=== PATIENT | female | born 1975 | race Caucasian/White ===

== ENCOUNTER 2019-11-23 20:23 | Emergency (ER) | payer OTHER, MEDICAID, SELFPAY ==
[2019-11-23] VITALS (10 sets, daily range): BP systolic 118–145; BP diastolic 74–89; PULSE 75–114; RESP 20–22; TEMP 36.5; O2SAT 94–99
--- NOTE | 2019-11-23 20:32 | DI.RAD.S_ITS ---
PROCEDURE: XR ACUTE ABDOMEN SERIES INDICATIONS: SOB, fatigue, orthopnea TECHNIQUE: One view chest and two views of the abdomen were acquired. COMPARISON: None. FINDINGS: Surgical changes and devices: Bilateral hip arthroplasties. Chest: Lungs are clear. Heart size is normal. No pleural effusions. No pneumoperitoneum. Abdomen: Bowel gas pattern is normal. No suspicious calcifications. Visualized solid organ contours appear normal. Bones: No suspicious bony lesions. IMPRESSION: Bilateral hip arthroplasties, no sign of active inflammation within the chest abdomen or pelvis. Source of current symptoms is not seen. Dictated by: Avelino Browning M.D. on 11/23/2019 at 21:10 Approved by: Avelino Browning M.D. on 11/23/2019 at 21:11
--- NOTE | 2019-11-23 20:32 | DI.CT.S_ITS ---
PROCEDURE: CT HEAD/BRAIN WO CON INDICATIONS: confused, facial swelling, hearing loss TECHNIQUE: Noncontrast 4.5 mm thick angled axial sections acquired from the foramen magnum to the vertex, with coronal and sagittal reformats. For radiation dose reduction, the following was used: automated exposure control, adjustment of mA and/or kV according to patient size. COMPARISON: None. FINDINGS: Image quality: Excellent. CSF spaces: Basal cisterns are patent. No extra-axial fluid collections. Ventricles are normal in size and shape. Brain: No midline shift. No intracranial masses or hemorrhage. Thomason-white matter interface is normal. Skull and face: Calvarium and visualized facial bones are intact, without suspicious lesions. Sinuses: Visualized sinuses and mastoids are clear. IMPRESSION: Normal for age, source of current altered mental status symptoms is not seen. Dictated by: Avelino Browning M.D. on 11/23/2019 at 21:11 Approved by: Avelino Browning M.D. on 11/23/2019 at 21:11
[2019-11-23] MEDS: SODIUM CHLORIDE 0.9% 1,000 ML 125 ML IV (20:58)
[2019-11-23 21:00] LABS: Add Manual Diff / Slide Review NO; Basophils Absolute Auto 100 /uL (0-100); Basophils Percent Auto 2.6 % (0-2); Eosinophils Absolute Auto 100 /uL (0-450); Eosinophils Percent Auto 3.9 % (2-4); Hematocrit 31.9 % (36-46); Hemoglobin 10.6 g/dL (12.0-16.0); Lymphocytes Absolute Auto 1300 /uL (1100-4500); Lymphocytes Percent Auto 42.6 % (25-40); Mean Corpuscular HGB Conc 33.1 % (30-36); Mean Corpuscular Hemoglobin 29.3 PG (26-34); Mean Corpuscular Volume 88.4 fL (80-100); Monocytes Absolute Auto 300 /uL (0-900); Monocytes Percent Auto 9.8 % (3-14); Neutrophils Absolute Auto 1200 /uL (1500-7000); Neutrophils Percent Auto 41.1 % (50-75); Platelet Count 78 X10^3/uL (150-400); Red Blood Cell Count 3.61 X10^6/uL (4.0-5.2); Red Cell Distribution Width 17.4 % (11.6-14.8)
--- NOTE | 2019-11-23 21:07 | ED.AMS ---
HPI - Altered Mental Status General Chief Complaint: Upper Respiratory Symptoms Stated Complaint: sinus infection going into eye and ear Time Seen by Provider: 11/23/19 20:25 Source: patient Mode of arrival: Ambulatory Limitations: no limitations History of Present Illness HPI narrative: 44F nonsmoker with history of extensive alcohol abuse along with liver disease and GI bleeds presents with her significant other and a chief complaint left-sided sinus pressure for the past few days. She denies any nasal drainage. The further we discuss her symptoms she also has bruising on the left side of her face despite any falls or salts. She has been confused and forgetful. She has lost hearing from her left ear. Furthermore she feels quite fatigued and short of breath with any exertion or lying flat and she has the development notable swelling in both of her lower extremities. It is very unclear how long the symptoms have been going. She has had no vomiting, diarrhea or change in urinary habits such as dysuria, frequency or urgency. She denies any runny nose, sore throat or cough. She denies any fever or chills nor exposure to persons known to have COVID-19. MD complaint: altered mental status and confusion Onset (ago): unknown Severity: moderate Consistency of symptoms: constant Context: alcohol abuse Related Data Previous Rx's Medication Instructions Recorded estradiol 10 mcg vaginal tablet 10 mcg VAG .COMPLEX #18 tab 10/04/17 magnesium 200 mg PO DAILY #10 tab 11/23/19 potassium chloride 20 meq PO DAILY #10 tab 11/23/19 sulfamethoxazole-trimethoprim 1 tab PO BID 10 Days #20 tab 11/23/19 [Bactrim DS] Allergies Allergy/AdvReac Type Severity Reaction Status Date / Time penicillin G [PENICILLIN G] Allergy Unknown Unverified 10/04/17 14:01 BEE,BUMBLE Allergy Intermediate Uncoded 10/04/17 14:01 Review of Systems Constitutional Constitutional: Denies chills, Denies fatigue, Denies fever(s), Denies frequent falls, Reports lethargy and Reports weakness Eyes Eyes: Denies change in vision, Denies eye discharge, Denies irritation and Denies loss of vision ENT Ears, Nose, Mouth, and Throat: Denies change in voice, Denies dizziness, Reports hearing loss, Denies neck pain, Denies sore throat and Denies throat swelling Comments: hearing change in left ear Cardiovascular Cardiovascular: Denies chest pain, Reports pedal edema, Denies irregular heart rhythm, Reports leg edema, Denies lightheadedness, Denies palpitations, Reports dyspnea, Denies dyspnea on exertion and Denies orthopnea Respiratory Respiratory: Denies cough, Reports dyspnea, Denies dyspnea on exertion and Denies wheezing Gastrointestinal Gastrointestinal: Denies abdominal pain, Denies change in bowel habits, Denies diarrhea, Denies nausea and Denies vomiting Musculoskeletal Musculoskeletal: Denies neck pain and Denies numbness Integumentary/Breasts Skin/Breast: Denies pruritus, Denies erythema, Denies rash and Denies wounds Neurologic Neurologic: Denies behavioral changes, Denies confusion, Denies dizziness, Denies frequent falls, Denies loss of vision, Denies numbness and Reports weakness Psychiatric Psychiatric: Denies anxiety, Denies behavioral changes, Denies confusion, Denies depression, Denies homicidal ideation and Denies suicidal ideation Endocrine Endocrine: Denies fatigue, Denies flushing and Denies palpitations Hematologic/Lymphatic Hematologic/Lymphatic: Denies easy bruising Allergic/Immunologic Allergic/Immunologic: Denies urticaria, Denies throat swelling and Denies wheezing Patient History Social History Smoking Status: Never smoker Smoking Status: Never smoker alcohol intake frequency: 3 or more drinks per day Alcohol type: wine Exam Narrative Exam Narrative: GENERAL: [44] year old patient appears stated age. Well-nourished, well-developed patient, in mild distress. Awake and alert, but some confusion is apparent HEAD: Tenderness to palpation over left zygoma with minimal swelling. No redness, warmth, or fluctuance. EYES: Pupils equal round and reactive. Extraocular motions intact. No scleral icterus. No injection or drainage. ENT: Nose without bleeding, purulent drainage. Throat without erythema, tonsillar hypertrophy or exudate. Airway patent. NECK: Trachea midline. Non tender CARDIOVASCULAR: Regular rate and rhythm without murmurs, gallops, or rubs. RESPIRATORY: faint crackles in bilateral bases GASTROINTESTINAL: Abdomen soft, non-tender, nondistended. No ascites. EXTREMITIES: 2+ pitting edema in bilateral lower extremities BACK: Nontender without deformity or crepitance. No flank tenderness. NEURO: AOx3. SKIN: No rash or erythema of visible areas Initial Vital Signs Initial Vital Signs: Vital Signs Pulse Rate 114 H 11/23/19 20:29 Respiratory Rate 22 11/23/19 20:29 Blood Pressure 145/89 H 11/23/19 20:29 Pulse Oximetry 98 11/23/19 20:29 Course Orders Ordered: ED Orders 11/23/19 20:32 CT head/brain wo con Stat XR acute abdomen series Stat EKG-12 Lead Stat 11/23/19 20:40 Acetaminophen Stat Ammonia (NH3) Stat Complete Blood Count AUTO DIFF Stat Comprehensive Metabolic Panel Stat Ethanol (ETOH) Stat Lactate (Lactic Acid) Stat Magnesium Stat NT-proBNP (BNP-Adult 18+) Stat Procalcitonin Stat Prothrombin Time INR Stat Salicylate Stat Troponin & CK Cardiac Panel Stat 11/23/19 21:15 Urine Drug Screen, Rapid Stat Urine Microscopic Stat 11/23/19 22:30 CT chest abd pel w con Stat Discontinued Medications Sodium Chloride (Normal Saline 0.9%) 1,000 mls @ 125 mls/hr IV CONT JIAN Last Admin: 11/23/19 20:58 Dose: 125 mls/hr Documented by: WALTER Magnesium Sulfate (Magnesium Sulfate) 2 gm in 50 mls @ 25 mls/hr IV NOW ONE Stop: 11/23/19 23:33 Last Admin: 11/23/19 21:36 Dose: 25 mls/hr Documented by: WALTER Cosigned by: ISAIAS Magnesium Oxide (Mag Ox) 400 mg PO NOW ONE Stop: 11/23/19 21:32 Last Admin: 11/23/19 21:50 Dose: Not Given Documented by: WALTER Potassium Chloride (Potassium Chloride) 40 meq PO NOW ONE Stop: 11/23/19 21:31 Last Admin: 11/23/19 21:34 Dose: 40 meq Documented by: WALTER Vital Signs Vital signs: Vital Signs - 8 hr 11/23/19 20:29 11/23/19 21:13 11/23/19 21:14 Temperature Pulse Rate 114 H 90 87 Respiratory Rate 22 Blood Pressure 145/89 H 139/83 Pulse Oximetry 98 98 99 11/23/19 21:30 11/23/19 22:00 11/23/19 22:30 Temperature Pulse Rate 83 81 75 Respiratory Rate Blood Pressure 132/87 128/87 118/74 Pulse Oximetry 98 95 94 11/23/19 22:48 11/23/19 23:00 11/23/19 23:30 Temperature Pulse Rate 96 H 77 82 Respiratory Rate Blood Pressure 122/78 123/76 Pulse Oximetry 99 95 95 11/23/19 23:57 Temperature 97.7 F Pulse Rate 107 H Respiratory Rate 20 Blood Pressure 123/76 Pulse Oximetry 98 MDM - Altered Mental Status Lab Data Result diagrams: 11/23/19 20:40 11/23/19 20:40 Labs: Lab Results 11/23/19 11/23/19 11/23/19 Range/Units 20:40 20:40 20:40 WBC 3.0 L (4.5-11.0) X10^3/uL RBC 3.61 L (4.0-5.2) X10^6/uL Hgb 10.6 L (12.0-16.0) g/dL Hct 31.9 L (36-46) % MCV 88.4 (80-100) fL MCH 29.3 (26-34) PG MCHC 33.1 (30-36) % RDW 17.4 H (11.6-14.8) % Plt Count 78 L (150-400) X10^3/uL Neut % (Auto) 41.1 L (50-75) % Lymph % (Auto) 42.6 H (25-40) % [place] % (Auto) 9.8 (3-14) % Eos % (Auto) 3.9 (2-4) % Baso % (Auto) 2.6 H (0-2) % Neut # (Auto) 1200 L (5347-9255) /uL Lymph # (Auto) 1300 (7386-9464) /uL [place] # (Auto) 300 (0-900) /uL Eos # (Auto) 100 (0-450) /uL Baso # (Auto) 100 (0-100) /uL PT 13.7 H (10.1-12.7) SECONDS INR 1.2 (0.9-1.3) Sodium 142 (137-145) mmol/L Potassium 3.9 (3.4-5.1) mmol/L Chloride 106 (98-107) mmol/L Carbon Dioxide 26 (22-32) mmol/L BUN 9 (7-17) mg/dL Creatinine 0.55 (0.52-1.04) mg/dL Estimated GFR > 60.0 (>60) mL/min BUN/Creatinine Ratio 16.4 (6-22) Glucose 93 (70-100) mg/dL Lactate (0.7-2.1) mmol/L Calcium 9.1 (8.4-10.2) mg/dL Magnesium 1.4 L (1.6-2.3) mg/dL Total Bilirubin 0.6 (0.2-1.3) mg/dL AST 200 H (14-36) IU/L ALT 74 H (<35) IU/L Alkaline Phosphatase 82 (38-126) U/L Ammonia (9-30) umol/L Total Creatine Kinase 845 H (30-135) U/L CK-MB (CK-2) 4.83 H (<2.37) ng/mL CK-MB (CK-2) Rel Index 0.6 L (1.5-5.0) % Troponin I < 0.012 (0.01-0.034) ng/mL NT-Pro-B Natriuret Pep 82 (<125) pg/mL Total Protein 8.2 (6.3-8.2) g/dL Albumin 4.6 (3.5-5.0) g/dL Globulin 3.6 (1.7-4.1) g/dL Albumin/Globulin Ratio 1.3 (1.0-2.8) Procalcitonin (<0.5) ng/mL Urine RBC (0-5/HPF) Urine WBC (0-5/HPF) Ur Squamous Epith Cells (0-5/HPF) Urine Bacteria (None) Ur Culture Indicated? Salicylates 1.0 (<20) mg/dL U Opiates 300ng/mL cut (Negative) Ur Oxycodone Screen (Negative) Urine Methadone Screen (Negative) Acetaminophen < 10 L (10-30) ug/mL Ur Barbiturates Screen (Negative) U Tricyclic Antidepress (Negative) Ur Phencyclidine Scrn (Negative) Ur Amphetamines Screen (Negative) U Methamphetamines Scrn (Negative) Ur MDMA Scrn (Ecstasy) (Negative) U Benzodiazepines Scrn (Negative) Urine Cocaine Screen (Negative) U Marijuana (THC) Screen (Negative) Ethyl Alcohol 333 H ( - 10) mg/dL 11/23/19 11/23/19 11/23/19 Range/Units 20:40 20:40 20:40 WBC (4.5-11.0) X10^3/uL RBC (4.0-5.2) X10^6/uL Hgb (12.0-16.0) g/dL Hct (36-46) % MCV (80-100) fL MCH (26-34) PG MCHC (30-36) % RDW (11.6-14.8) % Plt Count (150-400) X10^3/uL Neut % (Auto) (50-75) % Lymph % (Auto) (25-40) % [place] % (Auto) (3-14) % Eos % (Auto) (2-4) % Baso % (Auto) (0-2) % Neut # (Auto) (4294-5935) /uL Lymph # (Auto) (2880-3331) /uL [place] # (Auto) (0-900) /uL Eos # (Auto) (0-450) /uL Baso # (Auto) (0-100) /uL PT (10.1-12.7) SECONDS INR (0.9-1.3) Sodium (137-145) mmol/L Potassium (3.4-5.1) mmol/L Chloride (98-107) mmol/L Carbon Dioxide (22-32) mmol/L BUN (7-17) mg/dL Creatinine (0.52-1.04) mg/dL Estimated GFR (>60) mL/min BUN/Creatinine Ratio (6-22) Glucose (70-100) mg/dL Lactate 1.6 (0.7-2.1) mmol/L Calcium (8.4-10.2) mg/dL Magnesium (1.6-2.3) mg/dL Total Bilirubin (0.2-1.3) mg/dL AST (14-36) IU/L ALT (<35) IU/L Alkaline Phosphatase (38-126) U/L Ammonia 13 (9-30) umol/L Total Creatine Kinase (30-135) U/L CK-MB (CK-2) (<2.37) ng/mL CK-MB (CK-2) Rel Index (1.5-5.0) % Troponin I (0.01-0.034) ng/mL NT-Pro-B Natriuret Pep (<125) pg/mL Total Protein (6.3-8.2) g/dL Albumin (3.5-5.0) g/dL Globulin (1.7-4.1) g/dL Albumin/Globulin Ratio (1.0-2.8) Procalcitonin < 0.05 (<0.5) ng/mL Urine RBC (0-5/HPF) Urine WBC (0-5/HPF) Ur Squamous Epith Cells (0-5/HPF) Urine Bacteria (None) Ur Culture Indicated? Salicylates (<20) mg/dL U Opiates 300ng/mL cut (Negative) Ur Oxycodone Screen (Negative) Urine Methadone Screen (Negative) Acetaminophen (10-30) ug/mL Ur Barbiturates Screen (Negative) U Tricyclic Antidepress (Negative) Ur Phencyclidine Scrn (Negative) Ur Amphetamines Screen (Negative) U Methamphetamines Scrn (Negative) Ur MDMA Scrn (Ecstasy) (Negative) U Benzodiazepines Scrn (Negative) Urine Cocaine Screen (Negative) U Marijuana (THC) Screen (Negative) Ethyl Alcohol ( - 10) mg/dL 11/23/19 11/23/19 Range/Units 21:15 21:15 WBC (4.5-11.0) X10^3/uL RBC (4.0-5.2) X10^6/uL Hgb (12.0-16.0) g/dL Hct (36-46) % MCV (80-100) fL MCH (26-34) PG MCHC (30-36) % RDW (11.6-14.8) % Plt Count (150-400) X10^3/uL Neut % (Auto) (50-75) % Lymph % (Auto) (25-40) % [place] % (Auto) (3-14) % Eos % (Auto) (2-4) % Baso % (Auto) (0-2) % Neut # (Auto) (8902-1616) /uL Lymph # (Auto) (9334-2368) /uL [place] # (Auto) (0-900) /uL Eos # (Auto) (0-450) /uL Baso # (Auto) (0-100) /uL PT (10.1-12.7) SECONDS INR (0.9-1.3) Sodium (137-145) mmol/L Potassium (3.4-5.1) mmol/L Chloride (98-107) mmol/L Carbon Dioxide (22-32) mmol/L BUN (7-17) mg/dL Creatinine (0.52-1.04) mg/dL Estimated GFR (>60) mL/min BUN/Creatinine Ratio (6-22) Glucose (70-100) mg/dL Lactate (0.7-2.1) mmol/L Calcium (8.4-10.2) mg/dL Magnesium (1.6-2.3) mg/dL Total Bilirubin (0.2-1.3) mg/dL AST (14-36) IU/L ALT (<35) IU/L Alkaline Phosphatase (38-126) U/L Ammonia (9-30) umol/L Total Creatine Kinase (30-135) U/L CK-MB (CK-2) (<2.37) ng/mL CK-MB (CK-2) Rel Index (1.5-5.0) % Troponin I (0.01-0.034) ng/mL NT-Pro-B Natriuret Pep (<125) pg/mL Total Protein (6.3-8.2) g/dL Albumin (3.5-5.0) g/dL Globulin (1.7-4.1) g/dL Albumin/Globulin Ratio (1.0-2.8) Procalcitonin (<0.5) ng/mL Urine RBC None seen (0-5/HPF) Urine WBC None seen (0-5/HPF) Ur Squamous Epith Cells 1-5 /hpf (0-5/HPF) Urine Bacteria Few (2-10) H (None) Ur Culture Indicated? Cult not indicated Salicylates (<20) mg/dL U Opiates 300ng/mL cut Negative (Negative) Ur Oxycodone Screen Negative (Negative) Urine Methadone Screen Negative (Negative) Acetaminophen (10-30) ug/mL Ur Barbiturates Screen Negative (Negative) U Tricyclic Antidepress Negative (Negative) Ur Phencyclidine Scrn Negative (Negative) Ur Amphetamines Screen Negative (Negative) U Methamphetamines Scrn Negative (Negative) Ur MDMA Scrn (Ecstasy) Negative (Negative) U Benzodiazepines Scrn Negative (Negative) Urine Cocaine Screen Negative (Negative) U Marijuana (THC) Screen Negative (Negative) Ethyl Alcohol ( - 10) mg/dL Imaging Data Chest x-ray: Radiologist's Impression: [address] [address] XRay Report Signed Patient: Sol Stover [facility]#: [id number] : 1975Acct:[id number] Age/Sex: 44 / FDate of Service: 11/23/19 Loc: ED Accession Number: [id number] Procedure: XR acute abdomen series Ordering Provider: Darian Craig D.O. PROCEDURE: XR ACUTE ABDOMEN SERIES INDICATIONS: SOB, fatigue, orthopnea TECHNIQUE: One view chest and two views of the abdomen were acquired. COMPARISON: None. FINDINGS: Surgical changes and devices: Bilateral hip arthroplasties. Chest: Lungs are clear. Heart size is normal. No pleural effusions. No pneumoperitoneum. Abdomen: Bowel gas pattern is normal. No suspicious calcifications. Visualized solid organ contours appear normal. Bones: No suspicious bony lesions. IMPRESSION: Bilateral hip arthroplasties, no sign of active inflammation within the chest abdomen or pelvis. Source of current symptoms is not seen. Dictated by: Avelino Browning M.D. on 11/23/2019 at 21:10 Approved by: Avelino Browning M.D. on 11/23/2019 at 21:11 CT scan - head: Radiologist's Impression: Sol Stover S 44 F [address] [address] [address] Scan Report Signed Patient: Sol Stover [facility]#: [id number] : 1975Acct:[id number] Age/Sex: 44 / FDate of Service: 11/23/19 Loc: ED Accession Number: [id number] Procedure: CT head/brain wo con Ordering Provider: Darian Craig D.O. PROCEDURE: CT HEAD/BRAIN WO CON INDICATIONS: confused, facial swelling, hearing loss TECHNIQUE: Noncontrast 4.5 mm thick angled axial sections acquired from the foramen magnum to the vertex, with coronal and sagittal reformats. For radiation dose reduction, the following was used: automated exposure control, adjustment of mA and/or kV according to patient size. COMPARISON: None. FINDINGS: Image quality: Excellent. CSF spaces: Basal cisterns are patent. No extra-axial fluid collections. Ventricles are normal in size and shape. Brain: No midline shift. No intracranial masses or hemorrhage. Thomason-white matter interface is normal. Skull and face: Calvarium and visualized facial bones are intact, without suspicious lesions. Sinuses: Visualized sinuses and mastoids are clear. IMPRESSION: Normal for age, source of current altered mental status symptoms is not seen. Dictated by: Avelino Browning M.D. on 11/23/2019 at 21:11 Approved by: Avelino Browning M.D. on 11/23/2019 at 21:11 [facility] Narrative Medical decision making narrative: patient now awake, alert and oriented. Her electrolytes have been replaced and she's had IVF. She is speaking clearly and walking a straight line. She still maintains the statement that the tender area of bruising on her left cheek absolutely is not from injury. This could be the beginnings of an abscess with minimal cellulitis hence my addition of Bactrim. She's been given return precautions and understands the plan. Discharge Plan Departure Patient Disposition: Home Clinical Impression: Acute hypokalemia, Alcohol abuse, Hypomagnesemia Discharge Date/Time: 11/24/19 00:05 Instructions: DI for Cellulitis -- Adult, Alcohol Use Disorder, DI for Hypokalemia Activity Restrictions/Additional Instructions: *You have been diagnosed with [ abnormally low electrolytes and lower extremity edema with chronic alcohol abuse] *What to do: *Take medications as directed *Follow up with your primary care provider in 2-3 days, call for an appointment. Let them know you were seen in the Emergency Department and that we ask that you be seen in follow up *Return to ER if you should have any new, worsening or concerning symptoms Prescriptions: New potassium chloride 20 mEq tablet extended release 20 meq PO DAILY Qty: 10 RF: 0 magnesium 200 mg tablet 200 mg PO DAILY Qty: 10 RF: 0 sulfamethoxazole-trimethoprim [Bactrim DS] 800-160 mg tablet 1 tab PO BID 10 Days Qty: 20 RF: 0 No Action estradiol 10 mcg tablet 10 mcg VAG .COMPLEX Qty: 18 RF: 3 Referrals: [facility] [Outside] Bradley Noriega MD [Primary Care Provider] -
[2019-11-23 21:17] LABS: INR 1.2 (0.9-1.3); Prothrombin Time 13.7 SECONDS (10.1-12.7)
[2019-11-23 21:21] LABS: Ammonia (NH3) 13 umol/L (9-30); Lactate (Lactic Acid) 1.6 mmol/L (0.7-2.1)
[2019-11-23 21:24] LABS: Alanine Aminotransferase 74 IU/L (<35); Albumin 4.6 g/dL (3.5-5.0); Albumin Globulin Ratio 1.3 (1.0-2.8); Alkaline Phosphatase 82 U/L (38-126); Aspartate Aminotransferase 200 IU/L (14-36); BUN Creatinine Ratio 16.4 (6-22); Bilirubin Total 0.6 mg/dL (0.2-1.3); Blood Urea Nitrogen 9 mg/dL (7-17); Calcium 9.1 mg/dL (8.4-10.2); Carbon Dioxide 26 mmol/L (22-32); Chloride 106 mmol/L (98-107); Creatine Kinase 845 U/L (30-135); Estimated Glomerular Filt Rate > 60.0 mL/min (>60); Globulin 3.6 g/dL (1.7-4.1); Glucose 93 mg/dL (70-100); HEMOLYSIS < 15 (0-50); Magnesium 1.4 mg/dL (1.6-2.3); Potassium 3.9 mmol/L (3.4-5.1); Sodium 142 mmol/L (137-145); Total Protein 8.2 g/dL (6.3-8.2)
[2019-11-23 21:32] LABS: RBC Urine None Seen (0-5/HPF); WBC Urine None Seen (0-5/HPF)
[2019-11-23] MEDS: POTASSIUM CHLORIDE 20 MEQ/15 ML UDC 40 MEQ PO (21:34)
[2019-11-23 21:36] LABS: Acetaminophen < 10 ug/mL (10-30); NT-proBNP (BNP-Adult 18+) 82 pg/mL (<125); Troponin I < 0.012 ng/mL (0.01-0.034)
[2019-11-23] MEDS: MAGNESIUM SULFATE 2 GM/50 ML PIGGYBACK IV (21:36)
[2019-11-23 21:38] LABS: UR Morphine/Opiate cutoff 300 Negative (Negative); Ur Creatinine Normal (Normal); Ur Specific Gravity Normal (Normal); Urine Amphetamines Negative (Negative); Urine Barbiturates Negative (Negative); Urine Benzodiazepines Negative (Negative); Urine Cocaine Negative (Negative); Urine MDMA Negative (Negative); Urine Methadone Negative (Negative); Urine Methamphetamines Negative (Negative); Urine Oxycodone Negative (Negative); Urine Phencyclidine Negative (Negative); Urine Tetrahydrocannabinol Negative (Negative); Urine Tricyclic Antidepressant Negative (Negative); Urine pH Normal (Normal)
[2019-11-23 21:39] LABS: CKMB % Relative Index 0.6 % (1.5-5.0); Creatine Kinase MB 4.83 ng/mL (<2.37); Procalcitonin < 0.05 ng/mL (<0.5)
[2019-11-23 21:40] LABS: Culture Indicated Urine Cult Not Indicated; Squamous Epithelial Cell Urine 1-5 /HPF (0-5/HPF)
[2019-11-23 21:41] LABS: Bacteria Urine Few (2-10)
[2019-11-23 21:43] LABS: Ethanol (ETOH) 333 mg/dL
--- NOTE | 2019-11-23 22:30 | DI.CT.S_ITS ---
PROCEDURE: CT CHEST ABD PEL W CON INDICATIONS: Shortness of breath, fatigue, anemia, liver failure TECHNIQUE: After the administration of intravenous contrast, 5 mm thick sections acquired from the lung apices to the symphysis. 5 mm coronal and sagittal reformats were performed, with additional 7 mm MIP reformats through the lungs. For radiation dose reduction, the following was used: automated exposure control, adjustment of mA and/or kV according to patient size. COMPARISON: None. FINDINGS: Image quality: Excellent. CHEST: Scattered subsegmental atelectasis and/or scarring. No focal consolidation. No pleural effusions or pneumothorax. Central and peripheral airways appear patent and normal in caliber. Mediastinum: Heart size is normal. No pericardial effusion. No mediastinal or hilar adenopathy by size criteria. Thoracic aorta and central pulmonary arteries are normal in size. Small hiatal hernia. Chest wall: No axillary or supraclavicular adenopathy by size criteria. Thyroid gland negative . ABDOMEN: Cirrhosis is noted. Hepatic steatosis. layering gallstones present. . Biliary system is non dilated. Pancreas enhances normally. Spleen is normal in size and enhancement. No adrenal nodules. Kidneys demonstrate normal size and enhancement, without hydronephrosis. Peritoneum and bowel: Bowel loops demonstrate normal wall thickness and caliber. No free fluid or air. Appendix is not clearly identified however no suspicious pericecal inflammatory changes are seen. Nodes and vessels: No retroperitoneal or mesenteric adenopathy by size criteria. Aorta and inferior vena cava are normal in size. Scattered vascular calcifications seen in the aorta. Miscellaneous: No ventral hernias. PELVIS: Pelvis is partially obscured by streak artifact from bilateral hip arthroplasty hardware. Bladder otherwise unremarkable. Miscellaneous: No inguinal hernias or adenopathy. Bones: No suspicious bony lesions. No vertebral body compression fractures. IMPRESSION: Cirrhosis of the liver. Incidental cholelithiasis Hepatic steatosis Elsewhere no acute abnormality Findings concordant with the preliminary study interpretation provided at the time of the exam. Dictated by: Herbert Mckeon M.D. on 11/24/2019 at 8:09 Approved by: Herbert Mckeon M.D. on 11/24/2019 at 8:16
--- NOTE | 2020-01-14 06:39 | PC.NURSE ---
IV magnesium oxide that was started on 11/22 was stopped at 2357 on 11/22 with zero container volume left. IV fluid bolus that was started on 11/22 was stopped at 2357 on 11/22 with zero container volume left.
== END 2019-11-24 00:05 | disposition home or self-care (01) ==
PROVIDERS: Emergency Provider Emergency Medicine; Family Provider Family Medicine; PCP Family Medicine
DX: E87.6 Hypokalemia (principal); E83.42 Hypomagnesemia; F10.10 Alcohol abuse, uncomplicated; R06.02 Shortness of breath; R60.9 Edema, unspecified
CPT/HCPCS: 36415; 70450; 71260; 74022; 74177; 80053; 80305; 80320; 80329; 81015; 82140; 82550; 82553; 83605; 83735; 83880; 84145; 84484; 85025; 85610; 93005; 96365; 96366; 96368; 99284; G0480; Q9967

== ENCOUNTER → 2021-09-11 15:15 | Outpatient (CLI) | payer OTHER, MEDICAID, SELFPAY ==
[2021-09-11 15:57] LABS: Cholesterol 216 mg/dL (140-199); HDL Cholesterol 75 mg/dL (40-60); LDL Cholesterol Calculated 110 mg/dL (<100); Triglycerides 157 mg/dL (35-150)
== END ==
PROVIDERS: Family Provider Family Medicine; PCP Pediatrics; Referring Provider Pediatrics; Visit Provider Pediatrics
DX: Z13.220 Encounter for screening for lipoid disorders (principal); Z76.89 Persons encountering health services in other specified circumstances
CPT/HCPCS: 36415; 80061

== ENCOUNTER 2021-09-24 16:34 | Emergency (ER) | payer OTHER, MEDICAID, SELFPAY ==
[2021-09-24 16:46] VITALS: BP 142/96; PULSE 102; RESP 20; TEMP 36.5; O2SAT 98
--- NOTE | 2021-09-24 16:52 | DI.RAD.S_ITS ---
PROCEDURE: XR SHOULDER LT MIN 2V INDICATIONS: increasing pain from previous traumatic injury TECHNIQUE: 3 views of the shoulder were acquired. COMPARISON: None. FINDINGS: Bones: No fractures or dislocations. No suspicious bony lesions. Visualized ribs appear intact. The acromioclavicular joint has degenerative changes. Soft tissues: No suspicious soft tissue calcifications. IMPRESSION: No acute traumatic abnormality of the left shoulder. Degenerative changes of the left acromioclavicular joint. Dictated by: Joey Torres M.D. on 09/24/2021 at 16:23 Approved by: Joey Torres M.D. on 09/24/2021 at 16:26
--- NOTE | 2021-09-24 16:52 | DI.RAD.S_ITS ---
PROCEDURE: XR RIBS LT MIN 3V W CXR1V INDICATIONS: increasing pain from previous traumatic injury TECHNIQUE: 2 views of the left ribs were acquired, along with a single view chest. COMPARISON: None. FINDINGS: Surgical changes and devices: None. Bones and chest wall: No fractures or dislocations. No suspicious bony lesions. Overlying soft tissues appear unremarkable. Lungs and pleura: No pleural effusions or pneumothorax. Lungs appear clear. Mediastinum: Mediastinal contours appear normal. Heart size is normal. IMPRESSION: Normal PA view of the chest and left ribs. Dictated by: Joey Torres M.D. on 09/24/2021 at 16:26 Approved by: Joey Torres M.D. on 09/24/2021 at 16:27
--- NOTE | 2021-09-24 19:18 | ED_ITS ---
HPI - Back Pain/Injury <BROOK Galloway - Last Filed: 09/24/21 21:15> General Chief Complaint: Back Pain/Injury Stated Complaint: Left Scapula Injury Time Seen by Provider: 09/24/21 19:17 Source: patient History of Present Illness HPI Narrative: 46-year-old female, nonsmoker, presents to emergency department with left shoulder, chest and rib pain. 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 Patient believes she has bones bulging out of her body on her left side and can not seem to get her pain under control. Patient reports that she drinks alcohol for pain relief, although not in excess. Patient denies any illicit drug use. Patient is also concerned because her memory inability to concentrate are starting to falter. Related Data Home Medications Medication Instructions Recorded Confirmed pantoprazole 40 mg tablet,delayed 40 mg PO BID 09/11/21 09/11/21 release Previous Rx's Medication Instructions Recorded diclofenac sodium 1 % topical gel 4 g topical QID PRN muscle pain 09/24/21 (Arthritis Pain (diclofenac)) #200 grams Allergies Allergy/AdvReac Type Severity Reaction Status Date / Time bee venom protein (honey bee) Allergy Severe Anaphylaxis Verified 09/11/21 14:49 penicillin G [PENICILLIN G] Allergy Mild ITCHING Verified 09/11/21 14:49 Review of Systems <BROOK Galloway - Last Filed: 09/24/21 21:15> Review of Systems Narrative: Narrative: GENERAL: Denies chills, fatigue, fever, sweats. See HPI HEENT: Denies sinus pain, ear pain, sore throat, difficulty swallowing, dizziness. RESPIRATORY: Denies dyspnea, cough, wheezing, sputum. CARDIOVASCULAR: Denies palpitations, edema. GASTROINTESTINAL: Denies nausea, vomiting, abdominal pain, diarrhea, constipat ion. : Denies dysuria, frequency, incontinence, hematuria, urinary retention, flank pain. MUSCULOSKELETAL: Endorses joint pain, or bony pain over her entire body. SKIN: Denies rash, skin lesions, or pruritis. NEUROLOGIC: Denies weakness, dizziness, headache, numbness, confusion. PSYCHIATRIC: No concerning psychosocial issues. Patient History <BROOK Galloway - Last Filed: 09/24/21 21:15> Medical History Cervicalgia History of concussion Social History Smoking Status: Never smoker alcohol intake: current (3 drinks per day 4oz ) substance use type: does not use Smoking Status: Never smoker alcohol intake frequency: 3 or more drinks per day Alcohol type: wine Exam <BROOK Galloway - Last Filed: 09/24/21 21:15> Narrative Exam Narrative: Exam Narrative: GENERAL: This is a under nourished, well-developed patient, in no acute distress HEAD: Atraumatic. Normocephalic. EYES: Pupils equal round and reactive. Extraocular motions intact. No scleral icterus, injection or drainage. ENT: Nose without bleeding, purulent drainage. Throat without erythema, tonsillar hypertrophy or exudate. Airway patent. NECK: Trachea midline. No JVD or lymphadenopathy. Nontender. CARDIOVASCULAR: Regular rate and rhythm without murmurs, peripheral pulses intact, cap refill <2 sec. RESPIRATORY: Breath sounds equal and clear bilaterally. No wheezes, rales, or rhonchi. No cough. No increased respiratory effort. No accessory muscle use. GASTROINTESTINAL: Abdomen soft, non-tender, nondistended without guarding or rebound. No suprapubic pain. EXTREMITIES: Normal range of motion, no clubbing or edema. Neurovascularly intact. Upper body is symmetrical. Generalized muscle pain of upper body. NEURO: A&O x 3. SKIN: Warm, dry, no rashes or lesions noted. Initial Vital Signs Initial Vital Signs: Vital Signs Temperature 97.7 F 09/24/21 16:46 Pulse Rate 102 H 09/24/21 16:46 Respiratory Rate 20 09/24/21 16:46 Blood Pressure 142/96 H 09/24/21 16:46 Pulse Oximetry 98 09/24/21 16:46 Oxygen Delivery Method 09/24/21 16:46 Reviewed Back/Spine/Pelvis Other: BACK Back is nontender and free of any obvious external abnormalities. There is no asymmetry, swelling, bruising or wound. There is no paraspinal tenderness or CVA tenderness. SI joints nontender. No pain over spinous processes. No symptoms of cauda equina such as saddle anesthesia. Sensation is grossly intact. ROM is full with mild pain. SLE is negative bilaterally. Reflexes 2-3 at patella and achilles bilaterally. Resistive strengths are within normal limits Gait is normal. Heel toe balance is intact. <Philip Perez DO - Last Filed: 09/24/21 23:35> Initial Vital Signs Initial Vital Signs: Vital Signs Temperature 97.7 F 09/24/21 16:46 Pulse Rate 102 H 09/24/21 16:46 Respiratory Rate 20 09/24/21 16:46 Blood Pressure 142/96 H 09/24/21 16:46 Pulse Oximetry 98 09/24/21 16:46 Oxygen Delivery Method 09/24/21 16:46 Course <BROOK Galloway - Last Filed: 09/24/21 21:15> Orders Ordered: ED Orders 09/24/21 16:52 XR ribs LT min 3V w CXR1V Stat XR shoulder LT min 2V Stat Discontinued Medications Sodium Chloride (Normal Saline 0.9%) 1,000 mls @ 1,000 mls/hr IV BOLUS ONE Stop: 09/24/21 20:35 Last Infusion: 09/24/21 21:26 Dose: 0 mls/hr Documented By: Admin: 09/24/21 20:10 Dose: 1,000 mls/hr Documented By: HERMANN Ketorolac Tromethamine (Ketorolac 30 Mg/Ml Vial) 15 mg IV NOW ONE Stop: 09/24/21 19:37 Last Admin: 09/24/21 20:10 Dose: 15 mg Documented By: HERMANN Vital Signs Vital signs: Vital Signs - 8 hr 09/24/21 16:46 09/24/21 21:28 Temperature 97.7 F Pulse Rate 102 H 89 Respiratory Rate 20 16 Blood Pressure 142/96 H 130/81 Pulse Oximetry 98 99 Oxygen Delivery Method Room Air Room Air <Philip Perez DO - Last Filed: 09/24/21 23:35> Orders Ordered: ED Orders 09/24/21 16:52 XR ribs LT min 3V w CXR1V Stat XR shoulder LT min 2V Stat Discontinued Medications Sodium Chloride (Normal Saline 0.9%) 1,000 mls @ 1,000 mls/hr IV BOLUS ONE Stop: 09/24/21 20:35 Last Infusion: 09/24/21 21:26 Dose: 0 mls/hr Documented By: Admin: 09/24/21 20:10 Dose: 1,000 mls/hr Documented By: HERMANN Ketorolac Tromethamine (Ketorolac 30 Mg/Ml Vial) 15 mg IV NOW ONE Stop: 09/24/21 19:37 Last Admin: 09/24/21 20:10 Dose: 15 mg Documented By: HERMANN Vital Signs Vital signs: Vital Signs - 8 hr 09/24/21 16:46 09/24/21 21:28 Temperature 97.7 F Pulse Rate 102 H 89 Respiratory Rate 20 16 Blood Pressure 142/96 H 130/81 Pulse Oximetry 98 99 Oxygen Delivery Method Room Air Room Air MDM - Back Pain/Injury <BROOK Galloway - Last Filed: 09/24/21 21:15> Differential Diagnosis Differential diagnosis: Likely other (Myalgia) Imaging Data Extremity x-ray #1: Radiologist's Impression: [address] [address] XRay Report Signed Patient: Sol Stover MR#: [id number] : 1975 Acct:[id number] Age/Sex: 46 / F Date of Service: 09/24/21 Loc: ED Accession Number: [id number] ?? Procedure: XR shoulder LT min 2V Ordering Provider: Francheska Duenas D.O. PROCEDURE:? XR SHOULDER LT MIN 2V ? INDICATIONS:? increasing pain from previous traumatic injury ? TECHNIQUE:? 3 views of the shoulder were acquired.? ? COMPARISON:? None. ? FINDINGS:? ? Bones:? No fractures or dislocations.? No suspicious bony lesions.? Visualized ribs appear intact.? The acromioclavicular joint has degenerative changes. ? Soft tissues:? No suspicious soft tissue calcifications.? ? IMPRESSION:? No acute traumatic abnormality of the left shoulder.? Degenerative changes of the left acromioclavicular joint. ? ? Dictated by: Joey Torres M.D. on 09/24/2021 at 16:23 ? ? Approved by: Joey Torres M.D. on 09/24/2021 at 16:26 ? Extremity x-ray #2: Radiologist's Impression: [address] [address] XRay Report Signed Patient: Sol Stover MR#: [id number] : 1975 Acct:[id number] Age/Sex: 46 / F Date of Service: 09/24/21 Loc: ED Accession Number: [id number] ?? Procedure: XR ribs LT min 3V w CXR1V Ordering Provider: Francheska Duenas D.O. PROCEDURE:? XR RIBS LT MIN 3V W CXR1V ? INDICATIONS:? increasing pain from previous traumatic injury ? TECHNIQUE:? 2 views of the left ribs were acquired, along with a single view chest.? ? COMPARISON:? None. ? FINDINGS:? ? Surgical changes and devices:? None.? ? Bones and chest wall:? No fractures or dislocations.? No suspicious bony lesions.? Overlying soft tissues appear unremarkable.? ? Lungs and pleura:? No pleural effusions or pneumothorax.? Lungs appear clear.? ? Mediastinum:? Mediastinal contours appear normal.? Heart size is normal.? ? IMPRESSION:? Normal PA view of the chest and left ribs. ? ? Dictated by: Joey Torres M.D. on 09/24/2021 at 16:26 ? ? Approved by: Joey Torres M.D. on 09/24/2021 at 16:27 ? MDM Narrative Medical decision making narrative: 46-year-old female presenting to the emergency department with chest left shoulder and rib pain for several years. Patient denies any recent trauma to worsen the symptoms. 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 X-rays were all negative. For comfort, provided 1 L of normal saline for hydration and ketorolac. Recommended hot or cold compresses, rice and Voltaren gel. Discussed plan of care with patient, who is agreeable with course of action. Discharge Plan Departure Patient Disposition: Home Clinical Impression: Myalgia Instructions: DI for Muscle Strain Activity Restrictions/Additional Instructions: *You have been diagnosed with mild dehydration and muscle aches. We have rehydrated you with IV fluids and given you an anti-inflammatory medication for your discomfort. I recommend gentle range of motion stretching exercises, hot or cold compresses to sore areas, Voltaren gel to the affected areas. Please follow-up with your family doctor if symptoms persist or worsen. *What to do: *Please continue to take your regular medications as directed. [x ] New medication prescriptions sent to your pharmacy: [facility] in [place] [ ] New medication written as a paper prescription [ ] No new medications given *Please follow up with your primary care provider in 2-3 days, call for an appointment. Let them know you were seen in the Emergency Department and that we ask that you be seen in follow up. We will electronically transmit a record of today's note if your PCP is in our system *If you do not have a primary care provider please contact the [facility] Resource line at [phone]. They will ask some questions about your medical history and help get you set up with a doctor in the community. ? Return to ER if you should have any new, worsening or concerning symptoms, such as worsening pain, severe headache, confusion, chest pain, difficulty breathing, fever greater than 101 F, shaking chills, persistent vomiting to the point that you cannot drink fluids, or other new or worsening symptoms. Prescriptions: New diclofenac sodium [Arthritis Pain (diclofenac)] 1 % gel 4 g topical QID PRN (Reason: muscle pain) Qty: 200 0RF Rx Instructions: apply to single knee, ankle, foot; for foot includes sole/toes/top of foot No Action pantoprazole 40 mg tablet,delayed release (DR/EC) 40 mg PO BID Referrals: Clive Martínez MD [Primary Care Provider] - Visit Report Forms: Patient Portal/API <Philip Perez, DO - Last Filed: 09/24/21 23:35> [facility] Dr Perez Co-Sign Statement: I was available for consultation during this patient's emergency department visit. This chart is signed by myself for administrative purposes only. I did not have direct contact with this patient during this visit. They were seen independently by the APC.
[2021-09-24] MEDS: KETOROLAC 30 MG/ML VIAL 15 MG IV (20:10)
[2021-09-24] MEDS: SODIUM CHLORIDE 0.9% 1,000 ML 1000 ML IV (20:10)
[2021-09-24 21:28] VITALS: BP 130/81; PULSE 89; RESP 16; O2SAT 99
== END 2021-09-24 21:28 | disposition home or self-care (01) ==
PROVIDERS: Emergency Provider Registered Nurse; Family Provider Family Medicine; PCP Pediatrics
DX: R07.89 Other chest pain (principal); M25.512 Pain in left shoulder; R07.81 Pleurodynia
CPT/HCPCS: 71101; 73030; 96361; 96374; 99283; 99284; J1885

== ENCOUNTER → 2021-10-23 09:39 | Outpatient (CLI) | payer OTHER, MEDICAID, SELFPAY ==
--- NOTE | 2021-10-23 09:40 | DI.MRI.S_ITS ---
PROCEDURE: MR HEAD/BRAIN WO CON INDICATIONS: recurring concussions TECHNIQUE: Noncontrast axial T1 spin echo, axial T2 fast spin echo, sagittal and axial FLAIR, axial gradient echo, axial diffusion and ADC, coronal thin-slice T2 FSE through the brain. Optional contrast, followed by axial and coronal and sagittal 3D VIBE or T1 spin echo with fat saturation sequences through the brain. COMPARISON: [facility], CT, CT HEAD/BRAIN WO CON, 11/23/2019, 20:37. FINDINGS: Image quality: Excellent. CSF spaces: Ventricles are normal in size and shape. Basal cisterns are patent. No extra-axial fluid collections. Brain: No intracranial bleeds or mass effects. There is [id number] diffuse cerebral volume loss. No abnormal intracranial enhancement. Thomason-white matter interface appears intact. Diffusion weighted images demonstrate no acute ischemic insults. Brainstem appear normal. Normal intravascular flow voids are present. The hippocampal regions appear normal and symmetric in morphology. Skull and face: Calvarial marrow signal is normal. Orbits appear normal. Sinuses: Sinuses and mastoids are clear. IMPRESSION: 1. No acute intracranial disease process. 2. No areas of encephalomalacia. 3. No acute or chronic intracranial hemorrhage. 4. No abnormal intracranial mass or mass effect. Dictated by: Renee Alas MD, PhD on 10/23/2021 at 10:26 Approved by: Renee Alas MD, PhD on 10/23/2021 at 10:29
== END ==
PROVIDERS: Family Provider Family Medicine; PCP Pediatrics; Referring Provider Pediatrics; Visit Provider Pediatrics
DX: M54.2 Cervicalgia (principal); Z87.820 Personal history of traumatic brain injury; F10.10 Alcohol abuse, uncomplicated; G43.909 Migraine, unspecified, not intractable, without status migrainosus
CPT/HCPCS: 70551

== ENCOUNTER → 2022-03-16 13:30 | Outpatient (CLI) | payer OTHER, MEDICAID, SELFPAY ==
[2022-03-16 14:32] LABS: Add Manual Diff / Slide Review NO; Basophils Absolute Auto 100 /uL (0-100); Basophils Percent Auto 3.4 % (0-2); Eosinophils Absolute Auto 100 /uL (0-450); Eosinophils Percent Auto 3.5 % (2-4); Hematocrit 31.6 % (36-46); Hemoglobin 10.6 g/dL (12.0-16.0); Lymphocytes Absolute Auto 1500 /uL (1100-4500); Lymphocytes Percent Auto 44.8 % (25-40); Mean Corpuscular HGB Conc 33.6 % (30-36); Mean Corpuscular Hemoglobin 29.4 PG (26-34); Mean Corpuscular Volume 87.4 fL (80-100); Monocytes Absolute Auto 200 /uL (0-900); Monocytes Percent Auto 6.9 % (3-14); Neutrophils Absolute Auto 1400 /uL (1500-7000); Neutrophils Percent Auto 41.4 % (50-75); Platelet Count 168 X10^3/uL (150-400); Red Blood Cell Count 3.61 X10^6/uL (4.0-5.2); Red Cell Distribution Width 16.8 % (11.6-14.8); White Blood Cell Count 3.3 X10^3/uL (4.5-11.0)
[2022-03-16 14:58] LABS: Alanine Aminotransferase 60 IU/L (<35); Albumin 4.8 g/dL (3.5-5.0); Albumin Globulin Ratio 1.3 (1.0-2.8); Alkaline Phosphatase 88 U/L (38-126); Aspartate Aminotransferase 177 IU/L (14-36); BUN Creatinine Ratio 21.4 (6-22); Bilirubin Total 0.5 mg/dL (0.2-1.3); Blood Urea Nitrogen 9 mg/dL (7-17); Carbon Dioxide 23 mmol/L (22-32); Chloride 104 mmol/L (98-107); Cholesterol 220 mg/dL (140-199); Estimated Glomerular Filt Rate > 60 mL/min (>60); Gamma Glutamyl Transpeptidase 664 U/L (12-43); Globulin 3.8 g/dL (1.7-4.1); Glucose 101 mg/dL (70-100); HDL Cholesterol 63 mg/dL (40-60); HEMOLYSIS < 15 (0-50); LDL Cholesterol Calculated 121 mg/dL (<100); Potassium 3.7 mmol/L (3.4-5.1); Sodium 145 mmol/L (137-145); Total Protein 8.6 g/dL (6.3-8.2); Triglycerides 182 mg/dL (35-150)
[2022-03-16 15:27] LABS: TSH w/ Reflex to FT4 1.65 uIU/mL (0.47-4.68)
[2022-03-16 15:32] LABS: Ferritin 18 ng/mL (6-137)
[2022-03-16 15:46] LABS: Vitamin B12 550 pg/mL (239-931)
[2022-03-16 17:29] LABS: Vitamin D 25 Hydroxy (D3) 27.3 ng/mL (30.0-100.0)
[2022-03-16 20:03] LABS: Hemoglobin A1C% w Est Avg Glu 4.7 % (4.0-6.0)
[2022-03-19 16:01] LABS: Hep C Virus Ab w/Reflex Quant NEGATIVE s/c (NEGATIVE)
== END ==
PROVIDERS: Family Provider Family Medicine; PCP Family Medicine; Referring Provider Family Medicine; Visit Provider Family Medicine
DX: F10.10 Alcohol abuse, uncomplicated (principal); F32.9 Major depressive disorder, single episode, unspecified; F41.1 Generalized anxiety disorder; M79.601 Pain in right arm; M79.602 Pain in left arm; R20.2 Paresthesia of skin
CPT/HCPCS: 36415; 80053; 80061; 82306; 82607; 82728; 82977; 83036; 84443; 85025; 86803

== ENCOUNTER → 2022-06-12 10:25 | Outpatient (CLI) | payer OTHER, MEDICAID, SELFPAY ==
[2022-06-12 10:54] LABS: Hematocrit 31.8 % (36-46); Hemoglobin 10.6 g/dL (12.0-16.0)
== END ==
PROVIDERS: Family Provider Family Medicine; PCP Family Medicine; Referring Provider Family Medicine; Visit Provider Family Medicine
DX: R06.02 Shortness of breath (principal)
CPT/HCPCS: 36415; 85014; 85018

== ENCOUNTER → 2022-06-15 14:55 | Outpatient (CLI) | payer OTHER, MEDICAID, SELFPAY ==
--- NOTE | 2022-06-22 12:00 | PM.PFT.1 ---
Pulmonary Function Test Referral & Results Date Patient Seen: 06/15/22 Results: The spirometry demonstrates an FVC of 3.54 L which is 87% of predicted. The FEV1 was measured at 2.99 L which is 92% of predicted. The FEV1/FVC ratio was 84 which is 105% of predicted. Following the administration of bronchodilator there was no appreciable change to above normal numbers. Lung volumes show an SVC of 3.12 L which is 84% of predicted. The diffusing capacity was measured at 16.80 which is 56% of predicted. The maximum voluntary ventilation was reduced Interpretation: This study demonstrates probably normal spirometry although the maybe a slight reduction in lung volumes suggesting the presence of minimal restrictive lung disease There is a more significant reduction in diffusing capacity suggesting disease at the capillary alveolar level There is also reduction maximum voluntary ventilation which in the absence of any significant abnormalities of spirometry suggest the presence of neuromuscular disease Clinical correlation suggested
== END ==
PROVIDERS: Family Provider Family Medicine; PCP Family Medicine; Referring Provider Family Medicine; Visit Provider Family Medicine
DX: R06.02 Shortness of breath (principal); J98.8 Other specified respiratory disorders
CPT/HCPCS: 94060; 94726; 94729

== ENCOUNTER 2022-08-17 16:29 | Emergency (ER) | payer OTHER, MEDICAID, SELFPAY ==
[2022-08-17 16:32] VITALS: BP 115/55; PULSE 77; RESP 18; TEMP 36.9; O2SAT 100; BMI 21.1
--- NOTE | 2022-08-17 16:47 | DI.US.S_ITS ---
PROCEDURE: US ABDOMEN COMPLETE INDICATIONS: H/O CIRRHOSIS W/O ASCITES NOW W/ NEW ABD SWELLING TECHNIQUE: Real-time scanning was performed of the abdominal and retroperitoneal organs, with image documentation. COMPARISON: None. FINDINGS: Liver: The liver has a normal size. The liver is heterogenous with increased echotexture consistent with hepatic steatosis. A small amount of fluid consistent with ascites is seen in Morison's pouch. Gallbladder: Gallbladder contains sludge with a thickened wall measuring 6 mm. Biliary ducts: Intrahepatic bile ducts are non-dilated. Extrahepatic bile duct caliber measures 5.0 mm. Normal is 6-7 mm or less in diameter, or 10 mm or less post-cholecystectomy. Pancreas: Not well visualized. Spleen: Not well visualized. Kidneys: The right kidney measures 10.1 cm in length. The left kidney measures 10.8 cm in length. No hydronephrosis, no solid or cystic mass. Aorta: Not visualized Iliacs: Not visualized IVC: Not visualized Miscellaneous: No free abdominal fluid. IMPRESSION: 1. Echogenic heterogenous liver consistent with hepatic steatosis and/or cirrhosis. 2. Mild diffuse ascites. Dictated by: Joey Torres M.D. on 08/17/2022 at 18:00 Approved by: Joey Torres M.D. on 08/17/2022 at 18:02
--- NOTE | 2022-08-17 16:47 | PC.NURSE ---
Attempt x2 PIV unsuccessful
[2022-08-17 19:25] VITALS: BP 112/68
[2022-08-17 19:26] VITALS: PULSE 73; O2SAT 100
[2022-08-17 19:30] VITALS: BP 113/74; PULSE 73; RESP 16; O2SAT 100
[2022-08-17 19:31] LABS: Ictotest Urine Positive (Negative)
[2022-08-17 19:41] LABS: Bacteria Urine Occasional (0-1); Culture Indicated Urine Cult Not Indicated; RBC Urine 0-1/HPF (0-5/HPF); Squamous Epithelial Cell Urine 5-10 /HPF (0-5/HPF); WBC Urine 1-5/HPF (0-5/HPF)
--- NOTE | 2022-08-17 19:47 | ED_ITS ---
HPI - General Adult General Chief complaint: Abdominal Pain Stated complaint: Going to blow up Time Seen by Provider: 08/17/22 18:28 Source: patient Mode of arrival: Ambulatory History of Present Illness HPI narrative: Patient has a reported history of stroke 1 month ago. History of alcohol abuse. Is just over 1 month sober. Is here for evaluation of bilateral lower extremity swelling. Also feeling like her abdomen is swollen. She states she has gained weight for the past couple days. No problems breathing. No chest pain. She is not on diuretics. Related Data Previous Rx's Medication Instructions Recorded metoclopramide HCl 10 mg tablet See Rx Instructions .Route 04/23/22 .COMPLEX #40 tabs pantoprazole 40 mg tablet,delayed 40 mg PO BID #60 tabs 04/23/22 release propranolol 20 mg tablet 20 mg PO BID liver disease #60 tabs 04/23/22 cetirizine 10 mg tablet (Zyrtec) 10 mg PO DAILY PRN allergy 05/21/22 symptoms #90 tabs fluticasone propionate 50 2 spray intranasal DAILY PRN 05/21/22 mcg/actuation nasal allergy symptoms #16 grams spray,suspension gabapentin 100 mg capsule 100 mg PO TID #90 caps 05/21/22 hydroxyzine HCl 25 mg tablet 25 mg PO Q6-8H PRN anxiety #120 05/21/22 tabs albuterol sulfate 90 mcg/actuation 2 puff inhalation Q4-6H PRN 06/15/22 aerosol inhaler shortness of breath or wheezing #8.5 grams furosemide 20 mg tablet (Lasix) 40 mg PO DAILY #60 tabs 08/17/22 Allergies Allergy/AdvReac Type Severity Reaction Status Date / Time bee venom protein (honey bee) Allergy Severe Anaphylaxis Verified 08/17/22 16:38 penicillin G [PENICILLIN G] Allergy Mild ITCHING Verified 08/17/22 16:38 Review of Systems Constitutional Constitutional: Reports system reviewed and no additional complaints, except as documented Cardiovascular Cardiovascular: Reports system reviewed and no additional complaints, except as documented Respiratory Respiratory: Reports system reviewed and no additional complaints, except as documented Gastrointestinal Gastrointestinal: Reports system reviewed and no additional complaints, except as documented Genitourinary Genitourinary: Reports system reviewed and no additional complaints, except as documented Musculoskeletal Musculoskeletal: Reports system reviewed and no additional complaints, except as documented Hematologic/Lymphatic On Anticoagulants: No Patient History Medical History Cervicalgia Decreased diffusion capacity Elevated LFTs BYRON (generalized anxiety disorder) GI bleed History of concussion Liver cirrhosis Major depression Paresthesia and pain of both upper extremities Seizure Social History Smoking Status: Never smoker alcohol intake: current (3 drinks per day 4oz ) substance use type: does not use Smoking Status: Never smoker alcohol intake frequency: 0-2 drinks per day Alcohol type: wine Substance Use Type: does not use Exam Initial Vital Signs Initial Vital Signs: Vital Signs Temperature 98.4 F 08/17/22 16:32 Pulse Rate 77 08/17/22 16:32 Respiratory Rate 18 08/17/22 16:32 Blood Pressure 115/55 L 08/17/22 16:32 Pulse Oximetry 100 08/17/22 16:32 Oxygen Delivery Method Room Air 08/17/22 16:32 Const General: cooperative HENMT Head: normal to inspection and normocephalic Resp Effort & Inspection: normal respiratory effort Auscultation: clear to auscultation bilaterally Cardio Rate: regular rate Rhythm: regular rhythm GI Inspection: no edema and non-distended Palpation: soft and No tender Neuro General: patient alert and patient awake Extrem General: edema Course Orders Ordered: ED Orders 08/17/22 18:50 Ictotest Urine Stat Urine Microscopic Stat 08/17/22 20:00 Complete Blood Count AUTO DIFF Stat Comprehensive Metabolic Panel Stat Lipase Stat PT [Prothrombin Time INR] Stat PTT Partial Thromboplastin Mohinder Stat Discontinued Medications Furosemide (Furosemide 20 Mg Tablet) 60 mg PO NOW ONE Stop: 08/17/22 19:48 Last Admin: 08/17/22 20:23 Dose: 60 mg Documented By: NEFTALY Ondansetron HCl (Ondansetron 4 Mg/2 Ml Inj) 4 mg IV NOW PRN PRN Reason: Nausea And Vomiting Vital Signs Vital signs: Vital Signs - 8 hr 08/17/22 19:25 08/17/22 19:26 08/17/22 19:30 Pulse Rate 73 Respiratory Rate Blood Pressure 112/68 113/74 Pulse Oximetry 100 Oxygen Delivery Method 08/17/22 19:30 08/17/22 21:24 08/17/22 20:00 Pulse Rate 73 80 72 Respiratory Rate 16 14 16 Blood Pressure 116/70 122/78 Pulse Oximetry 100 99 98 Oxygen Delivery Method Room Air Room Air Medical Decision Making Lab Data Lab results reviewed: Yes I reviewed the patient's lab results. 08/17/22 20:00 08/17/22 20:00 Labs: Lab Results 08/17/22 08/17/22 08/17/22 Range/Units 18:50 18:50 20:00 WBC 8.5 (4.5-11.0) X10^3/uL RBC 3.12 L (4.0-5.2) X10^6/uL Hgb 9.8 L (12.0-16.0) g/dL Hct 29.0 L (36-46) % MCV 92.9 (80-100) fL MCH 31.3 (26-34) PG MCHC 33.7 (30-36) % RDW 15.4 H (11.6-14.8) % Plt Count 186 (150-400) X10^3/uL Neut % (Auto) 60.7 (50-75) % Lymph % (Auto) 22.5 L (25-40) % Menard % (Auto) 12.9 (3-14) % Eos % (Auto) 3.2 (2-4) % Baso % (Auto) 0.7 (0-2) % Neut # (Auto) 5200 (2632-7579) /uL Lymph # (Auto) 1900 (0577-3287) /uL Menard # (Auto) 1100 H (0-900) /uL Eos # (Auto) 300 (0-450) /uL Baso # (Auto) 100 (0-100) /uL PT (10.1-12.7) SECONDS INR (0.9-1.3) APTT (26-36) SECONDS Sodium (137-145) mmol/L Potassium (3.4-5.1) mmol/L Chloride (98-107) mmol/L Carbon Dioxide (22-32) mmol/L BUN (7-17) mg/dL Creatinine (0.52-1.04) mg/dL Estimated GFR (>60) mL/min BUN/Creatinine Ratio (6-22) Glucose (70-100) mg/dL Calcium (8.4-10.2) mg/dL Total Bilirubin (0.2-1.3) mg/dL AST (14-36) IU/L ALT (<35) IU/L Alkaline Phosphatase (38-126) U/L Total Protein (6.3-8.2) g/dL Albumin (3.5-5.0) g/dL Globulin (1.7-4.1) g/dL Albumin/Globulin Ratio (1.0-2.8) Lipase (23-300) U/L Ur Bilirubin Confirm Positive H (Negative) Urine RBC 0-1/hpf (0-5/HPF) Urine WBC 1-5/hpf (0-5/HPF) Ur Squamous Epith Cells 5-10 /hpf H (0-5/HPF) Urine Bacteria Occasional (0-1) (None) Ur Culture Indicated? Cult not indicated 08/17/22 08/17/22 Range/Units 20:00 20:00 WBC (4.5-11.0) X10^3/uL RBC (4.0-5.2) X10^6/uL Hgb (12.0-16.0) g/dL Hct (36-46) % MCV (80-100) fL MCH (26-34) PG MCHC (30-36) % RDW (11.6-14.8) % Plt Count (150-400) X10^3/uL Neut % (Auto) (50-75) % Lymph % (Auto) (25-40) % Menard % (Auto) (3-14) % Eos % (Auto) (2-4) % Baso % (Auto) (0-2) % Neut # (Auto) (4001-8663) /uL Lymph # (Auto) (0088-6012) /uL Menard # (Auto) (0-900) /uL Eos # (Auto) (0-450) /uL Baso # (Auto) (0-100) /uL PT 20.0 H (10.1-12.7) SECONDS INR 1.7 H (0.9-1.3) APTT 29 (26-36) SECONDS Sodium 137 (137-145) mmol/L Potassium 4.2 (3.4-5.1) mmol/L Chloride 102 (98-107) mmol/L Carbon Dioxide 26 (22-32) mmol/L BUN 9 (7-17) mg/dL Creatinine 0.40 L (0.52-1.04) mg/dL Estimated GFR > 60 (>60) mL/min BUN/Creatinine Ratio 22.5 H (6-22) Glucose 100 (70-100) mg/dL Calcium 8.1 L (8.4-10.2) mg/dL Total Bilirubin 3.0 H (0.2-1.3) mg/dL AST 116 H (14-36) IU/L ALT 39 H (<35) IU/L Alkaline Phosphatase 210 H (38-126) U/L Total Protein 7.0 (6.3-8.2) g/dL Albumin 3.2 L (3.5-5.0) g/dL Globulin 3.8 (1.7-4.1) g/dL Albumin/Globulin Ratio 0.8 L (1.0-2.8) Lipase 264 (23-300) U/L Ur Bilirubin Confirm (Negative) Urine RBC (0-5/HPF) Urine WBC (0-5/HPF) Ur Squamous Epith Cells (0-5/HPF) Urine Bacteria (None) Ur Culture Indicated? Point of Care Testing Test Results Negative Urine Dip Bedside Urine Glucose Negative Bedside Urine Bilirubin + 1 Bedside Urine Ketone +/- 5 Urine Specific [place] 1.020 Bedside Urine Occult Blood - Negative Bedside Urine pH 6.0 Bedside Urine Protein +/- 15 Bedside Urine Urobilinogen +/- 1mg Bedside Urine Nitrite - Negative Bedside Urine Leukocytes - Negative Esterase Point of care testing: Point of Care Testing Test Results Negative Urine Dip Bedside Urine Glucose Negative Bedside Urine Bilirubin + 1 Bedside Urine Ketone +/- 5 Urine Specific [place] 1.020 Bedside Urine Occult Blood - Negative Bedside Urine pH 6.0 Bedside Urine Protein +/- 15 Bedside Urine Urobilinogen +/- 1mg Bedside Urine Nitrite - Negative Bedside Urine Leukocytes - Negative Esterase Imaging Data US - abdomen: Radiologist's Impression: PROCEDURE:? US ABDOMEN COMPLETE ? INDICATIONS:? H/O CIRRHOSIS W/O ASCITES NOW W/ NEW ABD SWELLING ? TECHNIQUE:? Real-time scanning was performed of the abdominal and retroperitoneal organs, [facility] image documentation.? ? COMPARISON:? None. ? FINDINGS:? ? Liver:? The liver has a normal size.? The liver is heterogenous with increased echotexture consistent with hepatic steatosis.? A small amount of fluid consistent with ascites is seen in Morison's pouch. ? Gallbladder:? Gallbladder contains sludge with a thickened wall measuring 6 mm.? ? Biliary ducts:? Intrahepatic bile ducts are non-dilated.? Extrahepatic bile duct caliber measures 5.0 mm.? Normal is 6-7 mm or less in diameter, or 10 mm or less post-cholecystectomy.? ? Pancreas:? Not well visualized. ? Spleen:? Not well visualized. ? Kidneys:? The right kidney measures 10.1 cm in length.? The left kidney measures 10.8 cm in length.? No hydronephrosis, no solid or cystic mass. ? Aorta:? Not visualized ? Iliacs:? Not visualized ? IVC:? Not visualized ? Miscellaneous:? No free abdominal fluid.? ? ? IMPRESSION:? 1. Echogenic heterogenous liver consistent with hepatic steatosis and/or cirrhosis. 2. Mild diffuse ascites. MDM Narrative Medical decision making narrative: Patient does have bilateral lower extremity swelling no signs of cellulitis I have low suspicion for DVT given presentation. No chest pain. Abdomen is soft and nondistended. Ultrasound shows only very small amount of ascites. This is not amenable to drainage. No indication for paracentesis. I do feel that the patient would benefit from diuretics she was given Lasix here in the emergency department and will send her home with a prescription for this. She was instructed to continue to take the rest of her medications as directed. She was given return precautions. She expressed understanding and agreement with plan. Discharge Plan Departure Patient Disposition: Home Clinical Impression: Peripheral edema Instructions: DI for Peripheral Edema -- Bilateral Activity Restrictions/Additional Instructions: I recommend that you continue to take all of your medications as directed. Contact your primary doctor for a follow-up. Return to the emergency department for new symptoms. Prescriptions: New furosemide [Lasix] 20 mg tablet 40 mg PO DAILY Qty: 60 0RF Rx Instructions: take until swelling resolves No Action albuterol sulfate 90 mcg/actuation HFA aerosol inhaler 2 puff inhalation Q4-6H PRN (Reason: shortness of breath or wheezing) Qty: 8.5 3RF metoclopramide HCl 10 mg tablet See Rx Instructions .ROUTE .COMPLEX Qty: 40 3RF Dose Instruction: TAKE ONE TABLET BY MOUTH FOUR TIMES DAILY BEFORE MEALS AND NIGHTLY FOR 10 DAYS Rx Instructions: TAKE ONE TABLET BY MOUTH FOUR TIMES DAILY BEFORE MEALS as needed. do not use for more than 30 days at a time. pantoprazole 40 mg tablet,delayed release (DR/EC) 40 mg PO BID Qty: 60 11RF propranolol 20 mg tablet 20 mg PO BID Qty: 60 11RF hydroxyzine HCl 25 mg tablet 25 mg PO Q6-8H PRN (Reason: anxiety) Qty: 120 11RF cetirizine [Zyrtec] 10 mg tablet 10 mg PO DAILY PRN (Reason: allergy symptoms) Qty: 90 3RF fluticasone propionate 50 mcg/actuation spray,suspension 2 spray intranasal DAILY PRN (Reason: allergy symptoms) Qty: 16 11RF Rx Instructions: administer into each nostril gabapentin 100 mg capsule 100 mg PO TID Qty: 90 11RF Referrals: Jessica Fairchild DO [Primary Care Provider] - Stand Alone Forms: Patient Portal/API
[2022-08-17 20:00] VITALS: BP 122/78; PULSE 72; RESP 16; O2SAT 98
[2022-08-17 20:10] LABS: Add Manual Diff / Slide Review NO; Basophils Absolute Auto 100 /uL (0-100); Basophils Percent Auto 0.7 % (0-2); Eosinophils Absolute Auto 300 /uL (0-450); Eosinophils Percent Auto 3.2 % (2-4); Hemoglobin 9.8 g/dL (12.0-16.0); Lymphocytes Absolute Auto 1900 /uL (1100-4500); Lymphocytes Percent Auto 22.5 % (25-40); Mean Corpuscular HGB Conc 33.7 % (30-36); Mean Corpuscular Hemoglobin 31.3 PG (26-34); Mean Corpuscular Volume 92.9 fL (80-100); Monocytes Absolute Auto 1100 /uL (0-900); Monocytes Percent Auto 12.9 % (3-14); Neutrophils Absolute Auto 5200 /uL (1500-7000); Neutrophils Percent Auto 60.7 % (50-75); Platelet Count 186 X10^3/uL (150-400); Red Blood Cell Count 3.12 X10^6/uL (4.0-5.2); Red Cell Distribution Width 15.4 % (11.6-14.8); White Blood Cell Count 8.5 X10^3/uL (4.5-11.0)
[2022-08-17 20:16] LABS: INR 1.7 (0.9-1.3)
[2022-08-17 20:19] LABS: PTT Partial Thromboplastin Tim 29 SECONDS (26-36)
[2022-08-17 20:22] LABS: Alanine Aminotransferase 39 IU/L (<35); Albumin 3.2 g/dL (3.5-5.0); Albumin Globulin Ratio 0.8 (1.0-2.8); Alkaline Phosphatase 210 U/L (38-126); Aspartate Aminotransferase 116 IU/L (14-36); BUN Creatinine Ratio 22.5 (6-22); Blood Urea Nitrogen 9 mg/dL (7-17); Calcium 8.1 mg/dL (8.4-10.2); Carbon Dioxide 26 mmol/L (22-32); Chloride 102 mmol/L (98-107); Estimated Glomerular Filt Rate > 60 mL/min (>60); Globulin 3.8 g/dL (1.7-4.1); Glucose 100 mg/dL (70-100); HEMOLYSIS 31 (0-50); Lipase 264 U/L (23-300); Potassium 4.2 mmol/L (3.4-5.1); Sodium 137 mmol/L (137-145)
[2022-08-17] MEDS: FUROSEMIDE 20 MG TABLET 60 MG PO (20:23)
[2022-08-17 21:24] VITALS: BP 116/70; PULSE 80; RESP 14; O2SAT 99
== END 2022-08-17 21:28 | disposition home or self-care (01) ==
PROVIDERS: Emergency Medicine; Emergency Provider Emergency Medicine; Family Provider Family Medicine; PCP Family Medicine
DX: R60.0 Localized edema (principal)
CPT/HCPCS: 36415; 76700; 80053; 81003; 81015; 81025; 83690; 85025; 85610; 85730; 99284

== ENCOUNTER 2022-12-20 13:56 | Emergency (ER) | payer OTHER, MEDICAID, SELFPAY ==
[2022-12-20] VITALS (29 sets, daily range): BP systolic 103–139; BP diastolic 65–87; PULSE 84–108; RESP 12–26; TEMP 37.1; O2SAT 92–100; BMI 18.3
--- NOTE | 2022-12-20 14:16 | DI.CT.S_ITS ---
PROCEDURE: CT HEAD/BRAIN WO CON INDICATIONS: on/off numbness TECHNIQUE: Noncontrast 4.5 mm thick angled axial sections acquired from the foramen magnum to the vertex, with coronal and sagittal reformats. For radiation dose reduction, the following was used: automated exposure control, adjustment of mA and/or kV according to patient size. COMPARISON: [facility], MR, MR HEAD/BRAIN WO CON, 10/23/2021, 10:42. [facility], CT, CT HEAD/BRAIN WO CON, 11/23/2019, 20:37. FINDINGS: Image quality: There is artifact associated with the metallic hardware. Artifact from the metallic hardware is reduced by metal reconstruction algorithm. CSF spaces: Basal cisterns are patent. No extra-axial fluid collections. Ventricles are normal in size and shape. Brain: No midline shift. No intracranial masses or hemorrhage. Thomason-white matter interface is normal. Skull and face: Calvarium and visualized facial bones are intact, without suspicious lesions. Sinuses: Visualized sinuses and mastoids are clear. IMPRESSION: No acute intracranial process is seen. If there is strong clinical suspicion for an acute stroke, please consider a brain MRI for further evaluation, as it is more sensitive (assuming that there is no contraindication to MRI). Dictated by: Mikey Lucia M.D. on 12/20/2022 at 13:50 Approved by: Mikey Lucia M.D. on 12/20/2022 at 13:51
[2022-12-20 14:49] LABS: INR 1.3 (0.9-1.3); Prothrombin Time 14.6 SECONDS (10.1-12.7)
[2022-12-20 14:55] LABS: Appearance Urine UA CLEAR; Bilirubin Urine UA NEGATIVE (NEGATIVE); Color Urine UA YELLOW; Glucose Urine UA NEGATIVE (Negative); Ketones Urine UA 2+ (NEGATIVE); Leukocyte Esterase Urine UA NEGATIVE (NEGATIVE); Nitrite Urine UA NEGATIVE (Negative); Occult Blood Urine UA NEGATIVE (Negative); Protein Urine UA 1+ (Negative); Specific Gravity Urine UA 1.025 (1.000-1.035)
[2022-12-20 14:59] LABS: UR Morphine/Opiate cutoff 300 Negative (Negative); Ur Creatinine Normal (Normal); Ur Specific Gravity Normal (Normal); Urine Amphetamines Negative (Negative); Urine Barbiturates Negative (Negative); Urine Benzodiazepines Negative (Negative); Urine Cocaine Negative (Negative); Urine MDMA Negative (Negative); Urine Methadone Negative (Negative); Urine Methamphetamines Negative (Negative); Urine Oxycodone Negative (Negative); Urine Phencyclidine Negative (Negative); Urine Tetrahydrocannabinol Positive (Negative); Urine Tricyclic Antidepressant Negative (Negative); Urine pH Normal (Normal)
[2022-12-20 15:09] LABS: HEMOLYSIS < 15 (0-50)
[2022-12-20 15:10] LABS: Ammonia (NH3) 31 umol/L (9-30)
[2022-12-20 15:11] LABS: Acetaminophen < 10 ug/mL (10-30); Alanine Aminotransferase 63 IU/L (<35); Albumin 4.6 g/dL (3.5-5.0); Albumin Globulin Ratio 1.2 (1.0-2.8); Alkaline Phosphatase 92 U/L (38-126); Aspartate Aminotransferase 205 IU/L (14-36); BUN Creatinine Ratio 19.5 (6-22); Bilirubin Total 1.3 mg/dL (0.2-1.3); Blood Urea Nitrogen 8 mg/dL (7-17); Calcium 9.2 mg/dL (8.4-10.2); Carbon Dioxide 22 mmol/L (22-32); Chloride 96 mmol/L (98-107); Estimated Glomerular Filt Rate > 60 mL/min (>60); Lipase 316 U/L (23-300); Salicylate < 1.0 mg/dL (<20); Sodium 139 mmol/L (137-145); Total Protein 8.6 g/dL (6.3-8.2)
[2022-12-20 15:13] LABS: Basophils Absolute Auto 100 /uL (0-100); Basophils Percent Auto 2.9 % (0-2); Eosinophils Absolute Auto 0 /uL (0-450); Eosinophils Percent Auto 0.9 % (2-4); Hematocrit 27.9 % (36-46); Hemoglobin 9.1 g/dL (12.0-16.0); Lymphocytes Absolute Auto 1400 /uL (1100-4500); Lymphocytes Percent Auto 43.3 % (25-40); Mean Corpuscular HGB Conc 32.5 % (30-36); Mean Corpuscular Hemoglobin 27.4 PG (26-34); Mean Corpuscular Volume 84.2 fL (80-100); Monocytes Absolute Auto 400 /uL (0-900); Monocytes Percent Auto 13.7 % (3-14); Neutrophils Absolute Auto 1200 /uL (1500-7000); Neutrophils Percent Auto 39.2 % (50-75); Platelet Count 41 X10^3/uL (150-400); Red Blood Cell Count 3.31 X10^6/uL (4.0-5.2); Red Cell Distribution Width 19.3 % (11.6-14.8); White Blood Cell Count 3.1 X10^3/uL (4.5-11.0)
[2022-12-20 15:16] LABS: Add Manual Diff / Slide Review SLIDE REVIEW
--- NOTE | 2022-12-20 15:24 | ED.NEUROSD ---
HPI - Neuro Symptoms/Deficit General Chief Complaint: Neuro Symptoms/Deficit Stated Complaint: HX of fall and multiple TIAs Time Seen by Provider: 12/20/22 14:40 Source: patient and family Mode of arrival: Ambulatory Limitations: no limitations History of Present Illness HPI Narrative: Patient is a 47-year-old female. Does have history of alcohol abuse. She was sober for approximately 3 months. She states that she ?fell off the wagon? she states she has been drinking off and on for the past several weeks. She stated that her last drink was last evening although family at bedside states that she was ?sipping on a beer? this morning. Apparently over the past several days/week she has had episodes where she is been having multiple falls. Periods of time where she just starts shaking uncontrollably. Periods of time where she has numbness on the left side of her body and then family reports periods of time when she just seems to ?space out? she is concerned that she is having multiple mini strokes. On Anticoagulants: No Related Data Previous Rx's Medication Instructions Recorded pantoprazole 40 mg tablet,delayed 40 mg PO BID #60 tabs 04/23/22 release propranolol 20 mg tablet 20 mg PO BID liver disease #60 tabs 04/23/22 cetirizine 10 mg tablet (Zyrtec) 10 mg PO DAILY PRN allergy 05/21/22 symptoms #90 tabs fluticasone propionate 50 2 spray intranasal DAILY PRN 05/21/22 mcg/actuation nasal allergy symptoms #16 grams spray,suspension gabapentin 100 mg capsule 100 mg PO TID #90 caps 05/21/22 albuterol sulfate 90 mcg/actuation 2 puff inhalation Q4-6H PRN 06/15/22 aerosol inhaler shortness of breath or wheezing #8.5 grams furosemide 20 mg tablet (Lasix) 40 mg (2 x 20 mg) PO DAILY #60 tabs 09/04/22 metoclopramide HCl 10 mg tablet See Rx Instructions .Route 09/27/22 .COMPLEX #40 tabs naltrexone 50 mg tablet 50 mg PO DAILY alcohol use #30 tabs 10/10/22 Allergies Allergy/AdvReac Type Severity Reaction Status Date / Time bee venom protein (honey bee) Allergy Severe Anaphylaxis Verified 12/20/22 14:49 penicillin G [PENICILLIN G] Allergy Mild ITCHING Verified 12/20/22 14:49 Review of Systems Constitutional Constitutional: Reports system reviewed and no additional complaints, except as documented Cardiovascular Cardiovascular: Reports system reviewed and no additional complaints, except as documented Respiratory Respiratory: Reports system reviewed and no additional complaints, except as documented Integumentary/Breasts Skin/Breast: Reports system reviewed and no additional complaints, except as documented Neurologic Neurologic: Reports system reviewed and no additional complaints, except as documented Psychiatric Psychiatric: Reports system reviewed and no additional complaints, except as documented Hematologic/Lymphatic On Anticoagulants: No Patient History Medical History Abdominal ascites Decreased diffusion capacity Elevated LFTs Liver cirrhosis Seizure GI bleed BYRON (generalized anxiety disorder) Major depression Paresthesia and pain of both upper extremities History of concussion Cervicalgia Social History Smoking Status: Never smoker alcohol intake: current (3 drinks per day 4oz ) substance use type: does not use Smoking Status: Never smoker alcohol intake frequency: 3 or more drinks per day Alcohol type: wine Substance Use Type: marijuana Exam Initial Vital Signs Initial Vital Signs: Vital Signs Temperature 98.7 F 12/20/22 13:59 Pulse Rate 108 H 12/20/22 13:59 Respiratory Rate 18 12/20/22 13:59 Blood Pressure 136/77 12/20/22 13:59 Pulse Oximetry 97 12/20/22 13:59 Oxygen Delivery Method Room Air 12/20/22 13:59 Const General: cooperative, comfortable and No ill appearing HENMT Head: normal to inspection and normocephalic Resp Effort & Inspection: normal respiratory effort Auscultation: clear to auscultation bilaterally Cardio Rate: regular rate Rhythm: regular rhythm GI Inspection: normal to inspection Skin General: no rashes or lesions noted Neuro General: patient alert, patient awake, patient oriented x3 and moves all extremities Speech: speech normal Gait: normal gait Extrem General: normal to inspection Course Orders Ordered: ED Orders 12/20/22 14:15 EKG-12 Lead Stat 12/20/22 14:16 CT head/brain wo con Stat 12/20/22 14:30 Acetaminophen Stat Ammonia (NH3) Stat Complete Blood Count AUTO DIFF Stat Comprehensive Metabolic Panel Stat Ethanol (ETOH) Stat Lipase Stat Prothrombin Time INR Stat Salicylate Stat 12/20/22 14:44 Urinalysis and Microscopic Stat Urine Drug Screen, Rapid Stat Sodium Chloride (Normal Saline 0.9%) 1,000 mls @ 1,000 mls/hr IV BOLUS ONE Stop: 12/20/22 17:32 Ondansetron HCl (Ondansetron 4 Mg Odt) 4 mg PO NOW PRN PRN Reason: Nausea And Vomiting Ondansetron HCl (Ondansetron 4 Mg/2 Ml Inj) 4 mg IV NOW PRN PRN Reason: Nausea And Vomiting Discontinued Medications Thiamine HCl 100 mg/ Sodium (Chloride) 101 mls @ 404 mls/hr IV NOW ONE Stop: 12/20/22 16:34 Vital Signs Vital signs: Vital Signs - 8 hr 12/20/22 13:59 12/20/22 14:22 12/20/22 14:30 Temperature 98.7 F Pulse Rate 108 H 101 H 104 H Respiratory Rate 18 12 15 Blood Pressure 136/77 Pulse Oximetry 97 97 98 Oxygen Delivery Method Room Air Room Air 12/20/22 14:30 12/20/22 14:48 12/20/22 14:48 Temperature Pulse Rate 98 H Respiratory Rate 18 Blood Pressure 127/87 139/84 Pulse Oximetry 99 Oxygen Delivery Method 12/20/22 15:00 12/20/22 15:00 12/20/22 15:30 Temperature Pulse Rate 98 H 93 H Respiratory Rate 18 18 Blood Pressure 132/81 Pulse Oximetry 99 98 Oxygen Delivery Method 12/20/22 15:30 12/20/22 16:00 12/20/22 16:00 Temperature Pulse Rate 84 Respiratory Rate 15 Blood Pressure 119/79 112/68 Pulse Oximetry 94 Oxygen Delivery Method Room Air MDM - Neuro Symptoms/Deficit Lab Data Attestation: I reviewed the patient's lab results. 12/20/22 14:30 12/20/22 14:30 Labs: Lab Results 12/20/22 12/20/22 Range/Units 14:30 14:44 WBC 3.1 L (4.5-11.0) X10^3/uL RBC 3.31 L (4.0-5.2) X10^6/uL Hgb 9.1 L (12.0-16.0) g/dL Hct 27.9 L (36-46) % MCV 84.2 (80-100) fL MCH 27.4 (26-34) PG MCHC 32.5 (30-36) % RDW 19.3 H (11.6-14.8) % Plt Count 41 L (150-400) X10^3/uL Neut % (Auto) 39.2 L (50-75) % Lymph % (Auto) 43.3 H (25-40) % [place] % (Auto) 13.7 (3-14) % Eos % (Auto) 0.9 L (2-4) % Baso % (Auto) 2.9 H (0-2) % Neut # (Auto) 1200 L (2088-5626) /uL Lymph # (Auto) 1400 (1613-1325) /uL [place] # (Auto) 400 (0-900) /uL Eos # (Auto) 0 (0-450) /uL Baso # (Auto) 100 (0-100) /uL Platelet Estimate Adeq RBC Morphology Normal morphology PT 14.6 H (10.1-12.7) SECONDS INR 1.3 (0.9-1.3) Sodium 139 (137-145) mmol/L Potassium 4.0 (3.4-5.1) mmol/L Chloride 96 L (98-107) mmol/L Carbon Dioxide 22 (22-32) mmol/L BUN 8 (7-17) mg/dL Creatinine 0.41 L (0.52-1.04) mg/dL Estimated GFR > 60 (>60) mL/min BUN/Creatinine Ratio 19.5 (6-22) Glucose 95 (70-100) mg/dL Calcium 9.2 (8.4-10.2) mg/dL Total Bilirubin 1.3 (0.2-1.3) mg/dL AST 205 H (14-36) IU/L ALT 63 H (<35) IU/L Alkaline Phosphatase 92 (38-126) U/L Ammonia 31 H (9-30) umol/L Total Protein 8.6 H (6.3-8.2) g/dL Albumin 4.6 (3.5-5.0) g/dL Globulin 4.0 (1.7-4.1) g/dL Albumin/Globulin Ratio 1.2 (1.0-2.8) Lipase 316 H (23-300) U/L Urine Color Yellow Urine Appearance Clear Urine pH 6.0 (4.5-8.0) Ur Specific [place] 1.025 (1.000-1.035) Urine Protein 1+ H (Negative) Urine Glucose (UA) Negative (Negative) g/dL Urine Ketones 2+ H (NEGATIVE) Urine Occult Blood Negative (Negative) Urine Nitrate Negative (Negative) Urine Bilirubin Negative (NEGATIVE) Urine Urobilinogen 4.0 H (0.2) E.U./dL Ur Leukocyte Esterase Negative (NEGATIVE) Urine RBC 0-1/hpf (0-5/HPF) Urine WBC 1-5/hpf (0-5/HPF) Ur Squamous Epith Cells 1-5 /hpf (0-5/HPF) Urine Bacteria Few (2-10) H (None) Hyaline Casts 1-5/lpf (None) Ur Culture Indicated? Cult not indicated Salicylates < 1.0 (<20) mg/dL U Opiates 300ng/mL cut Negative (Negative) Ur Oxycodone Screen Negative (Negative) Urine Methadone Screen Negative (Negative) Acetaminophen < 10 (10-30) ug/mL Ur Barbiturates Screen Negative (Negative) U Tricyclic Antidepress Negative (Negative) Ur Phencyclidine Scrn Negative (Negative) Ur Amphetamines Screen Negative (Negative) U Methamphetamines Scrn Negative (Negative) Ur MDMA Scrn (Ecstasy) Negative (Negative) U Benzodiazepines Scrn Negative (Negative) Urine Cocaine Screen Negative (Negative) U Marijuana (THC) Screen Positive H (Negative) Ethyl Alcohol 437 H* ( - 10) mg/dL Imaging Data CT scan - head: Radiologist's Impression: PROCEDURE: CT HEAD/BRAIN WO CON INDICATIONS: on/off numbness TECHNIQUE: Noncontrast 4.5 mm thick angled axial sections acquired from the foramen magnum to the vertex, with coronal and sagittal reformats. For radiation dose reduction, the following was used: automated exposure control, adjustment of mA and/or kV according to patient size. COMPARISON: [facility], MR, MR HEAD/BRAIN WO CON, 10/23/2021, 10:42. [facility], CT, CT HEAD/BRAIN WO CON, 11/23/2019, 20:37. FINDINGS: Image quality: There is artifact associated with the metallic hardware. Artifact from the metallic hardware is reduced by metal reconstruction algorithm. CSF spaces: Basal cisterns are patent. No extra-axial fluid collections. Ventricles are normal in size and shape. Brain: No midline shift. No intracranial masses or hemorrhage. [place]-white matter interface is normal. Skull and face: Calvarium and visualized facial bones are intact, without suspicious lesions. Sinuses: Visualized sinuses and mastoids are clear. IMPRESSION: No acute intracranial process is seen. If there is strong clinical suspicion for an acute stroke, please consider a brain MRI for further evaluation, as it is more sensitive (assuming that there is no contraindication to MRI). MDM Narrative Medical decision making narrative: Based on her history and physical exam I have a very low suspicion that this is a CVA/TIA. Her alcohol level was significantly elevated. I suspect that her presenting symptoms are related to alcohol not because of a CVA/TIA. She also does not have findings consistent with Wernicke's encephalopathy. I did discuss the elevated alcohol with her. She states it must be ?because I do not metabolize? alcohol. Patient did not believe me that her symptoms she is been having could be related to alcohol and not a stroke. I talked with her about rehab/detox. She initially was amenable to this. I did inform her that she would need to stay here in the emergency department until her alcohol level is lower before any detox rehab place would accept her. She initially was amenable to this. Fluids and thiamine was ordered. Prior to the administration of this the patient and family opted to leave. Discharge Plan Departure Patient Disposition: Home Clinical Impression: Alcohol intoxication Instructions: DI for Alcohol Use Disorder Activity Restrictions/Additional Instructions: No driving for the next 24 hours or in the future if you drink alcohol. I recommend you contact your primary doctor for follow-up. You can return to the emergency department at any point for new or worsening symptoms. Prescriptions: No Action albuterol sulfate 90 mcg/actuation HFA aerosol inhaler 2 puff inhalation Q4-6H PRN (Reason: shortness of breath or wheezing) Qty: 8.5 3RF furosemide [Lasix] 20 mg tablet 40 mg PO DAILY Qty: 60 0RF Rx Instructions: take until swelling resolves metoclopramide HCl 10 mg tablet See Rx Instructions .ROUTE .COMPLEX Qty: 40 3RF Dose Instruction: TAKE ONE TABLET BY MOUTH FOUR TIMES DAILY BEFORE MEALS AND NIGHTLY FOR 10 DAYS Rx Instructions: TAKE ONE TABLET BY MOUTH FOUR TIMES DAILY BEFORE MEALS as needed for nausea and vomiting. do not use for more than 30 days at a time. pantoprazole 40 mg tablet,delayed release (DR/EC) 40 mg PO BID Qty: 60 11RF propranolol 20 mg tablet 20 mg PO BID Qty: 60 11RF cetirizine [Zyrtec] 10 mg tablet 10 mg PO DAILY PRN (Reason: allergy symptoms) Qty: 90 3RF fluticasone propionate 50 mcg/actuation spray,suspension 2 spray intranasal DAILY PRN (Reason: allergy symptoms) Qty: 16 11RF Rx Instructions: administer into each nostril gabapentin 100 mg capsule 100 mg PO TID Qty: 90 11RF naltrexone 50 mg tablet 50 mg PO DAILY Qty: 30 11RF Referrals: Jessica Fairchild DO [Primary Care Provider] - Stand Alone Forms: Patient Portal/API
[2022-12-20 15:31] LABS: RBC Morphology Normal Morphology
[2022-12-20 15:32] LABS: Platelet Estimate Adeq
[2022-12-20 15:35] LABS: Ethanol (ETOH) 437 mg/dL
[2022-12-20 15:43] LABS: Glucose 95 mg/dL (70-100)
[2022-12-20 15:48] LABS: Bacteria Urine Few (2-10); Culture Indicated Urine Cult Not Indicated; Hyaline Casts Urine 1-5/LPF; RBC Urine 0-1/HPF (0-5/HPF); Squamous Epithelial Cell Urine 1-5 /HPF (0-5/HPF); WBC Urine 1-5/HPF (0-5/HPF)
[2022-12-20] MEDS: SODIUM CHLORIDE 0.9% 1,000 ML 1000 ML IV (16:32)
[2022-12-20] MEDS: THIAMINE 100 MG in SODIUM CHLORIDE 0.9% 100 ML 404 MG IV (17:18)
--- NOTE | 2022-12-20 17:23 | PC.NURSE ---
Pt stated that she is confused as to why her KATHY is so high because she denies being intoxicated or drinking any alcohol. Pt's also denies that the pt has been drinking alcohol. Both report that pt attends AA meetings and has a sponsor. believes that patient must possess a rare gene that causes people to be intolerant to ETOH and makes their KATHY appear higher than normal. requested genetic testing and I explained that we do not do genetic testing through the emergency dept and they would probably have to see a specialist.
--- NOTE | 2022-12-20 18:13 | PC.NURSE ---
Pt inquired about process regarding ETOH detox. Discussed with pt and spouse the reason for wait. Pt and spouse verbalized understanding of the process and agreed to stay. Pt ambulated to bathroom with spouse.
--- NOTE | 2022-12-20 18:26 | DI.CT.S_ITS ---
PROCEDURE: CT ANGIO HEAD AND NECK INDICATIONS: left sided weakness TECHNIQUE: After the administration of intravenous contrast, 1 mm thick sections acquired from the aortic arch through the [place]. 3-dimensional [id number] (MIP) and/or volume rendering reformats were acquired of the central intracranial vasculature and neck separately. For radiation dose reduction, the following was used: automated exposure control, adjustment of mA and/or kV according to patient size. COMPARISON: [facility], MR, MR HEAD/BRAIN WO CON, 10/23/2021, 10:42. [facility], CT, CT HEAD/BRAIN WO CON, 11/23/2019, 20:37. [facility], CT, CT HEAD/BRAIN WO CON, 12/20/2022, 14:34. FINDINGS: Image quality: There is artifact associated with the metallic earrings. BRAIN: CSF spaces: Ventricles are normal in size and shape. Basal cisterns are patent. No extra-axial fluid collections. Brain: No significant abnormality of the brain can be seen. Skull and face: Calvarium and facial bones appear intact, without suspicious lesions. Orbits appear normal. Sinuses: Sinuses and mastoids are clear. HEAD CT ANGIOGRAPHY: Anterior circulation: Intracranial internal carotid arteries are normal in size and flow. The flow within the paired anterior cerebral arteries is normal and symmetric. The flow within the middle cerebral arteries is normal and symmetric. The anterior communicating artery is seen. No aneurysms are seen. Posterior circulation: Visualized portions of the vertebral arteries demonstrate normal caliber, and join to form a normal appearing basilar artery. Flow within the posterior cerebral arteries is normal and symmetric. No aneurysms are seen. NECK CT ANGIOGRAPHY: Carotid system: The great vessels demonstrate a conventional anatomy as they arise from the aortic arch. The origins of the common carotid arteries appear patent. The common carotid arteries demonstrate normal caliber and courses. The bifurcation regions are both widely patent. The internal carotid arteries demonstrate normal calibers and courses. Posterior circulation: The origins of the vertebral arteries both appear widely patent. The more superior extracranial portions of both vertebral arteries also demonstrate normal courses and calibers. They join to form a normal appearing basilar artery. Soft tissues: Visualized neck soft tissues demonstrate no suspicious abnormalities. Bones: No suspicious bony lesions. Visualized cervical spine appears normally aligned. IMPRESSION: No significant intracranial arterial abnormality is seen. Within the arteries of the neck, no hemodynamically significant stenosis can be seen. Any quantitative measurements of stenosis were performed using NASCET criteria. Dictated by: Mikey Lucia M.D. on 12/20/2022 at 18:19 Approved by: Mikey Lucia M.D. on 12/20/2022 at 18:21
--- NOTE | 2022-12-20 19:24 | PC.NURSE ---
This nurse spoke with patient and her . The patient and family both want to patient to go to a detox center. This nurse called [facility] and spoke with TRES Flores. Sandra states there is a bed available right now for the patient. The family member and the patient are on the phone right now doing a phone interview with [facility].
[2022-12-20] MEDS: ONDANSETRON 4 MG/2 ML INJ IV (19:45)
--- NOTE | 2022-12-20 21:37 | PC.NURSE ---
MAINTENANCE SUPERVISOR note: at 2136 dced IV in left wrist per RN Diann's request.
== END 2022-12-20 21:47 | disposition home or self-care (01) ==
PROVIDERS: Emergency Medicine; Emergency Provider Emergency Medicine; Family Provider Family Medicine; PCP Family Medicine
DX: F10.129 Alcohol abuse with intoxication, unspecified (principal); Y90.8 Blood alcohol level of 240 mg/100 ml or more; Z79.899 Other long term (current) drug therapy; R20.0 Anesthesia of skin
CPT/HCPCS: 36415; 70450; 70496; 70498; 80053; 80305; 80320; 80329; 81001; 82140; 83690; 85025; 85610; 93005; 96361; 96374; 99284; 99285; G0480; J2405; Q9967